=== PATIENT | male | born 1960 | race Caucasian/White ===

== ENCOUNTER 2021-05-01 20:57 | Emergency (ER) | payer MEDICARE ==
[~2021-05-01] VITALS: Ht 177.8 cm; Wt 151.0 kg
--- NOTE | 2021-05-01 21:17 | PHYS DOC ---
Past History Additional Past Medical Histor: neck pain, anesthesia reaction Past Surgical History: Cervical Fusion, Tonsillectomy, Other Additional Past Surgical Histo: cervical spine fusion Adult General Chief Complaint Chief Complaint: LOWER EXTREMITY EDEMA HPI HPI Patient is a 60-year-old male who presents to the emergency department with a chief complaint of shortness of breath, weight gain and enlarged legs bilaterally, scrotum and abdomen. States that over the past month he has had increased dyspnea on exertion, orthopnea, PND and edema. States that the edema did start in his lower legs and is worked his way up to his scrotum and then his abdomen over the last couple of days. States he gets out of breath just walking out to his lawn where he used to be able to mow without issue. States he does not think he has any medical problems but also states he has not seen a doctor in 30 years so is not sure if he has any medical problems. Denies any tobacco use, daily alcohol use or drug use. Denies any recent traumas, travels, illnesses, fevers, chest pain, nausea, vomiting, diarrhea, dysuria, hematuria or blood in the stool. States he has gained probably at least 20 pounds over the last month maybe more. Review of Systems Review of Systems Review of systems otherwise unremarkable except noted in HPI Allergies Allergies Allergies Coded Allergies Type Severity Reaction Last Updated Verified No Known Drug Allergies 05/01/21 No Physical Exam Physical Exam Constitutional: Well developed, well nourished, no acute distress, non-toxic appearance. [] HENT: Normocephalic, atraumatic, Eyes: conjunctiva normal, no discharge. [] Neck: Normal range of motion, no tenderness, supple, no stridor. [] Cardiovascular:Heart rate regular rhythm, no murmur [] Lungs & Thorax: Bilateral global Rales with decreased breath sounds inferiorly. Abdomen: Abdomen large, distended with anasarca up to the xiphoid process, no tenderness, no masses appreciated : Scrotal edema/anasarca with no edema, tenderness or pain. Skin: Warm, dry, no erythema, no rash. [] Extremities: Bilateral lower extremity edema with stasis dermatitis which extend up to proximal lower extremity. Neurovascular exam intact Neurologic: Alert and oriented X 3, normal motor function, normal sensory function, no focal deficits noted. [] Psychologic: Affect normal, judgement normal, mood normal. [] Current Patient Data Vital Signs Vital Signs Date Time Temp Pulse Resp B/P (MAP) Pulse Ox O2 Delivery O2 Flow Rate FiO2 05/01/21 20:57 98.0 109 40 164/91 97 Room Air EKG EKG [] Radiology/Procedures Radiology/Procedures [] Exam: CT of chest, abdomen and pelvis without contrast INDICATION: Severe shortness of breath, anasarca, difficulty holding breath TECHNIQUE: Sequential axial images through the chest, abdomen and pelvis obtained without IV contrast. Sagittal and coronal reformatted images were reconstructed from the axial data and reviewed. Exposure: One or more of the following in the visualized dose reduction techniques were utilized for this examination: 1. Automated exposure control 2. Adjustment of the MA and/or KV according to patient size 3. Use of iterative of reconstructive technique Comparisons: None FINDINGS: Visualized portions of the thyroid are unremarkable. No enlarged mediastinal lymph nodes are identified. Heart size is normal. No pericardial effusion. Thoracic aorta has a normal course and caliber. Pulmonary artery is not enlarged. Airways are patent. No consolidation or pneumothorax. No suspicious lung nodules. Moderate right and small left pleural effusion. Cirrhotic morphology of the liver. Spleen, pancreas, adrenals are unremarkable. Gallbladder is distended. No perinephric inflammation or hydronephrosis. No renal or ureteral calculi are identified. Bladder is partially seen appears thin-walled. Prostate is not enlarged. Large and small bowel are unremarkable. Appendix is normal. No free intra- abdominal air. There is a moderate amount of intra-abdominal ascites. Abdominal aorta has a normal course and caliber. No enlarged intra-abdominal lymph nodes are identified. No suspicious osseous lesions or acute fractures. IMPRESSION: 1. Moderate right and small left pleural effusions with adjacent atelectasis. 2. Cirrhotic morphology of liver with a moderate amount of intra-abdominal ascites. 3. Diffuse soft tissue anasarca. Heart Score C/O Chest Pain: No Risk Factors: Risk Factors: DM, Current or recent (<one month) smoker, HTN, HLP, family history of CAD, obesity. Risk Scores: Risk Factors: DM, Current or recent (<one month) smoker, HTN, HLP, family history of CAD, obesity. Course & Med Decision Making Course & Med Decision Making Patient is a 60-year-old male presents to the emergency department with a chief complaint of shortness of breath, weight gain and significant edema of bilateral lower extremities up to abdomen and scrotum over the last month Vital signs notable for hypertension and tachypnea. Physical exam noted above. EKG noted above with no STEMI but low limb voltage and QTC at 500. Patient placed on the monitor with IV access established. Laboratory analysis notable for mildly elevated liver enzymes as well as anemia. CT notable for moderate right and small left pleural effusions with adjacent atelectasis and cirrhotic morphology of the liver with moderate ascites with diffuse anasarca. Discussed all findings with patient and advised admission to the hospital in transfer to [facility] for continued evaluation and treatment including therapeutic paracentesis and possible thoracentesis. Started on Rocephin in the ED. Given Lasix. Patient grateful, verbalized understanding and agreed with plan of transfer and admission. Dr. Lebron accepting. [] Dragon Disclaimer Dragon Disclaimer This electronic medical record was generated, in whole or in part, using a voice recognition dictation system. Departure Departure: Impression: Primary Impression: Anasarca Additional Impressions: Bilateral lower extremity edema Scrotal edema Cirrhosis of liver Ascites Disposition: 02 [facility]ORT [facility] Admitting Physician: Skip Lebron Condition: IMPROVED Referrals: PCP,NO (PCP) Problem Qualifiers HUMA CORBIN MD May 01, 2021 21:17
[2021-05-01] MEDS ORDERED: NITROGLYCERIN SUBLINGUAL 0.4 MG BOTTLE OF 25. SL PRN (21:45)
[2021-05-01] MEDS ORDERED: FUROSEMIDE 40 MG/4 ML VIAL IVP ONE (21:45)
--- NOTE | 2021-05-01 21:50 | EKG ---
[address] [address] Test Date: 2021-05-01 Test Time: 21:09:41 Pat Name: CAREY GARCIA Department: Room: Gender: M [employer]: : 1960 Requested By: UHMA CORBIN Order Number: [id number] Reading MD: Quinn Kurtz Measurements Intervals [place] Rate: 108 P: 0 MD: 136 QRS: 38 QRSD: 74 T: 26 QT: 370 QTc: 500 Interpretive Statements SINUS TACHYCARDIA LOW LIMB LEAD VOLTAGE Electronically Signed On 05-02-2021 11:47:50 CDT by Quinn Kurtz
[2021-05-01 22:16] LABS: BASO # 0.1 x10^3/uL (0.0-0.2); BASO % 1 % (0-3); EOS # 0.2 x10^3/uL (0.0-0.7); EOS % 4 % (0-3); HEMATOCRIT 33.4 % (39.0-53.0); HEMOGLOBIN 10.8 g/dL (13.0-17.5); LYMPH # 1.2 x10^3/uL (1.0-4.8); LYMPH % 22 % (24-48); MEAN CORPUSCULAR HEMOGLOBIN 30 pg (25-35); MEAN CORPUSCULAR HGB CONC 32 g/dL (31-37); MEAN CORPUSCULAR VOLUME 92 fL (79-100); MONO # 0.8 x10^3/uL (0.0-1.1); MONO % 15 % (0-9); NEUT % 58 % (31-73); PLATELET COUNT 156 x10^3/uL (140-400); RED BLOOD COUNT 3.62 x10^6/uL (4.30-5.70); RED CELL DISTRIBUTION WIDTH 18.5 % (11.5-14.5); WHITE BLOOD COUNT 5.3 x10^3/uL (4.0-11.0)
[2021-05-01 22:25] LABS: CALCIUM 7.9 mg/dL (8.5-10.1); CREATININE 0.9 mg/dL (0.7-1.3)
[2021-05-01 22:26] LABS: GFR 85.8; POTASSIUM 3.8 mmol/L (3.5-5.1)
[2021-05-01 22:38] LABS: ALBUMIN 1.9 g/dL (3.4-5.0); ALBUMIN/GLOBULIN RATIO 0.4 (1.0-1.7); TOTAL PROTEIN 7.2 g/dL (6.4-8.2)
--- NOTE | 2021-05-01 23:00 | RAD ---
Exam: CT of chest, abdomen and pelvis without contrast INDICATION: Severe shortness of breath, anasarca, difficulty holding breath TECHNIQUE: Sequential axial images through the chest, abdomen and pelvis obtained without IV contrast . Sagittal and coronal reformatted images were reconstructed from the axial data and reviewed. Exposure: One or more of the following in the visualized dose reduction techniques were utilized for this examination: 1. Automated exposure control 2. Adjustment of the MA and/or KV according to patient size 3. Use of iterative of reconstructive technique Comparisons: None FINDINGS: Visualized portions of the thyroid are unremarkable. No enlarged mediastinal lymph nodes are identifi ed. Heart size is normal. No pericardial effusion. Thoracic aorta has a normal course and caliber. Pulmon leatha artery is not enlarged. Airways are patent. No consolidation or pneumothorax. No suspicious lung nodules. Moderate right and small left pleural effusion. Cirrhotic morphology of the liver. Spleen, pancreas, adrenals are unremarkable. Gallbladder is disten ded. No perinephric inflammation or hydronephrosis. No renal or ureteral calculi are identified. Bladder is partially seen appears thin-walled. Prostate is not enlarged. Large and small bowel are unremarkable. Appendix is normal. No free intra-abdominal air. There is a m oderate amount of intra-abdominal ascites. Abdominal aorta has a normal course and caliber. No enlarged intra-abdominal lymph nodes are identified. No suspicious osseous lesions or acute fractures. IMPRESSION: 1. Moderate right and small left pleural effusions with adjacent atelectasis. 2. Cirrhotic morphology of liver with a moderate amount of intra-abdominal ascites. 3. Diffuse soft tissue anasarca. Electronically signed by: Ricky Grant MD (05/01/2021 10:57 PM) [facility]
[2021-05-01] MEDS ORDERED: IV NORMAL SALINE 50ML 50 ML ONE (23:26)
[2021-05-01] MEDS ORDERED: cefTRIAXone SODIUM 1 GM VIAL ONE (23:26)
[2021-05-02 00:41] VITALS: BP 149/89
== END 2021-05-02 00:43 | disposition short-term general hospital (02) ==
LOC: ER 20:57
DX: R60.1 Generalized edema (principal); N50.89 Other specified disorders of the male genital organs; K74.60 Unspecified cirrhosis of liver; R18.8 Other ascites
CPT/HCPCS: 36415; 51702; 71250; 74176; 80053; 83735; 83880; 84443; 84484; 85025; 93005; 96365; 96375; 99285; J0696; J1940